=== PATIENT | male | born 1985 | race Caucasian/White ===

== ENCOUNTER 2016-05-08 17:24 | Emergency (ER) | payer BC, MEDICAID ==
--- NOTE | 2016-05-08 17:37 | Emergency Department Record ---
History of Present Illness <Sabra Johnson - Last Filed: 05/08/16 17:37> - General Source: Patient, Family - History of Present Illness Initial Comments: The patient states he has episodes of lightheadedness like he could pass out, followed by migraine headaches, and tingling in his fingers bilaterally. This happened yesterday, and Imitrex took his migraine away, then today as well when he took an imitrex for his migraine around 4 p.m. which resolved his symptoms. These occur about 5 out of 7 days a week. He has a day job at a factory, and states he's typically fine in the morning and worsens as the day progresses. About a year ago he was on an unknown (to him) medication for depression from his PCP which he stopped then because he doesn't like to take medications. He gets up 3-4 times a night to eat and drink and has gained weight of about 1 size clothing. He states there is diabetes in his family and he is concerned that he may have it and wants to be checked for it. MD Complaint: Lightheadedness, Other (anxious) <RONEN JAMES - Last Filed: 05/08/16 19:39> - General Chief Complaint: Dizziness Stated Complaint: LIGHTHEADED Time Seen by Provider: 05/08/16 17:36 - Related Data Home Medications Medication Instructions Recorded Confirmed Last Taken Fluticasone Propionate [Flonase 9.9 ml NS ASDIR 05/08/16 05/08/16 Unknown Allergy Relief] Omeprazole [Prilosec] 20 mg PO DAILY 05/08/16 05/08/16 05/08/16 Sumatriptan Succinate [Imitrex] 100 mg PO ASDIR 05/08/16 05/08/16 05/08/16 Allergies Allergy/AdvReac Type Severity Reaction Status Date / Time No Known Drug Allergies Allergy Verified 05/08/16 17:49 Review of Systems Reviewed: No additional complaints except as noted below Constitutional: Reports: As per HPI. Denies: Chills, Fever, Malaise, Night sweats, Weakness, Weight change Eyes: Reports: As per HPI. Denies: Eye discharge, Eye pain, Photophobia, Vision change ENT: Reports: As per HPI. Denies: Congestion, Dental pain, Ear pain, Epistaxis , Hearing loss, Throat pain Respiratory: Reports: As per HPI. Denies: Cough, Dyspnea, Hemoptysis, Stridor, Wheezes Cardiovascular: Reports: As per HPI. Denies: Arrhythmia, Chest pain, Dyspnea on exertion, Edema, Murmurs, Orthopnea, Palpitations, Paroxysmal nocturnal dyspnea, Rheumatic Fever, Syncope Endocrine: Reports: As per HPI. Denies: Fatigue, Heat or cold intolerance, Polydipsia, Polyuria Gastrointestinal: Reports: As per HPI. Denies: Abdominal pain, Constipation, Diarrhea, Hematemesis, Hematochezia, Melena, Nausea, Vomiting Genitourinary: Reports: As per HPI. Denies: Dysuria, Frequency, Hematuria, Incontinence, Retention, Testicular pain, Testicular mass, Urgency Musculoskeletal: Reports: As per HPI. Denies: Arthralgia, Back pain, Gout, Joint swelling, Myalgia, Neck pain Skin: Reports: As per HPI. Denies: Bruising, Change in color, Change in hair/ nails, Lesions, Pruritus, Rash Neurological: Reports: As per HPI. Denies: Abnormal gait, Confusion, Headache, Numbness, Paresthesias, Seizure, Tingling, Tremors, Vertigo, Weakness Psychiatric: Reports: As per HPI. Denies: Anxiety, Auditory hallucinations, Depression, Homicidal thoughts, Suicidal thoughts, Visual hallucinations Hematological/Lymphatic: Reports: As per HPI. Denies: Anemia, Blood Clots, Easy bleeding, Easy bruising, Swollen glands <RONEN JAMES - Last Filed: 05/08/16 19:39> Past Medical History - SOCIAL HISTORY Smoking Status: Never smoker - RESPIRATORY Hx Respiratory Disorders: Yes Hx Asthma: Yes - CARDIOVASCULAR Hx Cardio Disorders: No - NEURO Hx Neuro Disorders: Yes Hx Headaches: Yes - GI Hx GI Disorders: No - Hx Genitourinary Disorders: No - ENDOCRINE Hx Endocrine Disorders: No - MUSCULOSKELETAL Hx Musculoskeletal Disorders: No - PSYCH Hx Psych Problems: Yes Hx Depression: Yes - HEMATOLOGY/ONCOLOGY Hx Hematology/Oncology Disorders: No <Sabra Johnson - Last Filed: 05/08/16 17:37> - SOCIAL HISTORY Smoking Status: Never smoker ("hell no!") <RONEN JAMES - Last Filed: 05/08/16 19:39> Family Medical History Hx Cancer: Grandparents *Cancer Comment: prostate Hx Dementia: Grandparents <Sabra Johnson - Last Filed: 05/08/16 17:37> Physical Exam - General General Appearance: Alert, Oriented x3, Cooperative, No acute distress, Other ( anxious) - Head Head exam: Normal inspection - Eye Eye exam: Normal appearance, PERRL, EOMI Pupils: Normal accommodation - ENT ENT exam: Normal exam, Mucous membranes dry, Normal external ear exam, Normal orophraynx, TM's normal bilaterally Ear exam: Normal external inspection. negative: External canal tenderness Nasal Exam: Normal inspection. negative: Discharge, Sinus tenderness Mouth exam: Normal external inspection, Tongue normal Teeth exam: Normal inspection. negative: Dental caries Throat exam: Normal inspection. negative: Tonsillar erythema, Tonsillar exudate - Neck Neck exam: Normal inspection, Full ROM. negative: Tenderness - Respiratory Respiratory exam: Normal lung sounds bilaterally. negative: Respiratory distress - Cardiovascular Cardiovascular Exam: Regular rate, Normal rhythm, Normal heart sounds - GI/Abdominal GI/Abdominal exam: Soft, Normal bowel sounds. negative: Tenderness - Rectal Rectal exam: Deferred - exam: Deferred - Extremities Extremities exam: Normal inspection, Full ROM, Normal capillary refill. negative: Tenderness - Back Back exam: Reports: Normal inspection, Full ROM. Denies: Muscle spasm, Rash noted, Tenderness - Neurological Neurological exam: Alert, CN II-XII intact, Normal gait, Oriented X3, Reflexes normal - Psychiatric Psychiatric exam: Normal affect, Normal mood - Skin Skin exam: Dry, Intact, Normal color, Warm <RONEN JAMES - Last Filed: 05/08/16 19:39> Course Vital Signs 05/08/16 17:52 Temperature 97.8 F Pulse Rate 80 Respiratory 18 Rate Blood Pressure 145/92 Pulse Ox 98 - Reevaluation(s) Reevaluation #1: Feeling better currently. All tests normal. Patient states "what should I worry about." Told to follow with PCP for possible anxiety/depression medication if indicated. 05/08/16 19:37 <RONEN JAMES - Last Filed: 05/08/16 19:39> Medical Decision Making - Management Options MDM Management: No Additional Work-up Planned - Data Complexity MDM Data: Labs Ordered and/or Reviewed - Lab Data Result diagrams: 05/08/16 16:50 04/02/17 16:50 <RONEN JAMES - Last Filed: 05/08/16 19:39> Disposition <Sabra Johnson - Last Filed: 05/08/16 17:37> Disposition: Discharge <RONEN JAMES - Last Filed: 05/08/16 19:39> Clinical Impression: Anxiety Disposition: Home, Self-Care Condition: (1) Good Instructions: Generalized Anxiety Disorder (ED) Additional Instructions: Home, rest. Follow with PCP next week in office for recheck. Forms: Patient Portal Access
[2016-05-08] MEDS ORDERED: 0.9 % SODIUM CHLORIDE 1,000 ML BAG IV ONE (18:44)
[2016-05-08] MEDS ORDERED: LORAZEPAM 2 MG/ML VIAL IV ONE (18:45)
[2016-05-08 18:57] LABS: BASO % 0.3 % (0-6); EOS % 0.5 % (0-6); GRAN % 72.3 % (47-80); HEMOGLOBIN 16.1 gm/dl (14.0-18.0); MEAN CELL VOLUME 88.2 fl (81-97); MEAN CORPUSCULAR HEMOGLOBIN 30.2 pg (27-33); MEAN CORPUSCULAR HGB CONC 34.3 g/dl (32-36); MONO % 8.9 % (0-9); PLATELET COUNT 244 K/uL (130-400); RED BLOOD COUNT 5.33 M/uL (4.40-5.70); RED CELL DISTRIBUTION WIDTH 12.5 % (11.5-14.5); WHITE BLOOD COUNT W/O DIFF 7.5 K/uL (4.2-12.2)
[2016-05-08 19:08] LABS: ALBUMIN 4.8 gm/dL (3.5-5.0); ALKALINE PHOSPHATASE 59 U/L (38-126); ALT/SGPT 29 U/L (21-72); ANION GAP 7.9 (7-16); AST/SGOT 23 U/L (17-59); BILIRUBIN,TOTAL 1.26 mg/dL (0.2-1.3); BLOOD UREA NITROGEN 13 mg/dL (9-20); CARBON DIOXIDE 29.1 mmol/L (22-30); CREATININE 0.8 mg/dL (0.66-1.25); EST GLOMERULAR FILTRATION RATE > 60 ml/min; GLUCOSE,RANDOM 95 mg/dL (70-110)
== END 2016-05-08 19:49 | disposition home or self-care (01) ==
LOC: ER 17:24
DX: F41.9 Anxiety disorder, unspecified (principal); R42 Dizziness and giddiness; R20.2 Paresthesia of skin
CPT/HCPCS: 99284 ×2; 96374; 85025; 80076; 80048; J2060; J7030